=== PATIENT | male | born 1990 | race Caucasian/White ===

== ENCOUNTER 2017-06-10 15:25 | Emergency (ER) | payer SELFPAY ==
--- NOTE | 2017-06-10 15:43 | EDM.PDOC ---
ED HPI GENERAL MEDICAL PROBLEM - General Chief Complaint: ENT Problem Stated Complaint: SOMETHING STUCK IN THROAT Time Seen by Provider: 06/10/17 15:50 Source of Information: Reports: Patient History Limitations: Reports: No Limitations - History of Present Illness INITIAL COMMENTS - FREE TEXT/NARRATIVE: Michele is an otherwise healthy 27-year-old male who presents to the emergency department today with c/o foreign body in esophagus. Patient has had this happen in the past and was given a dose of SL NTG with relief. Patient has never been seen for this by a primary care provider as he lacks insurance. He is unable to swallow secretions, spitting in a bottle, denies any difficulty breathing or sob. Onset: Today Upper Chest Pain Score (Numeric/FACES): 2 - Related Data Allergies Allergy/AdvReac Type Severity Reaction Status Date / Time No Known Allergies Allergy Verified 07/08/15 18:23 Home Meds: Home Meds NK [No Known Home Meds] 10/08/13 [History] Past Medical History - Past Health History Medical/Surgical History: Denies Medical/Surgical History Social & Family History - Tobacco Use Smoking Status *Q: Light Tobacco Smoker Years of Tobacco use: 6 Packs/Tins Daily: 0.1 Used Tobacco, but Quit: No Second Hand Smoke Exposure: Yes - Alcohol Use Days Per Week of Alcohol Use: 3 Number of Drinks Per Day: 3 Total Drinks Per Week: 9 - Recreational Drug Use Recreational Drug Use: No ED ROS ENT - Review of Systems Review Of Systems: ROS reveals no pertinent complaints other than HPI. ED EXAM, ENT - Physical Exam Exam: See Below Exam Limited By: No Limitations General Appearance: Alert, WD/WN, No Apparent Distress Ears: Normal External Exam Mouth/Throat: Normal Inspection, Normal Lips, Other (No Uvula) Head: Atraumatic Neck: Normal Inspection, Supple, Non-Tender Respiratory/Chest: No Respiratory Distress, Lungs Clear, Normal Breath Sounds, No Accessory Muscle Use, Chest Non-Tender Cardiovascular: Regular Rate, Rhythm GI/Abdominal: Normal Bowel Sounds, Soft, Non-Tender Extremities: Normal Inspection, Normal Range of Motion Neurological: Alert, Oriented, CN II-XII Intact Psychiatric: Normal Affect, Normal Mood Skin: Warm, Dry, Intact Lymphatic: No Adenopathy Course - Vital Signs Last Recorded V/S: Last Vital Signs Temp 36.6 C 06/10/17 15:42 Pulse 72 06/10/17 15:42 Resp 18 06/10/17 15:42 BP 138/86 06/10/17 15:42 Pulse Ox 100 06/10/17 15:42 Michele is an otherwise healthy 27-year-old male who presents to the emergency department today with pork stuck in his esophagus. Please refer to history of present illness and focused exam. Patient had successfully received nitroglycerin in the past when seen for this before. Nitroglycerin and easy gas were ordered, prior to the administration, patient informed his nurse that he felt that the meat had passed and was able to drink a can of Coke without any difficulty. Patient at this time is stable to be discharged home, I strongly encouraged him to look into obtaining health care coverage to obtain a GI consult for esophageal dilatation to prevent this from happening in the future. Patient was encouraged to chew and eat slowly especially when it comes to protein and drink plenty of fluids to help the passage of food. Reasons to return to the emergency department were discussed, patient was agreeable to plan of care and was discharged in stable condition. - Orders/Labs/Meds Meds: Medications Discontinued Medications Generic Name Dose Route Start Last Admin Trade Name Freq PRN Reason Stop Dose Admin Nitroglycerin 0.4 mg 06/10/17 15:55 Nitrostat SL 06/10/17 15:56 ONETIME ONE Simethicone/Sodium Bicarb/Citric Ac 1 packet 06/10/17 15:53 E-Z-Gas Ii Effervescent Granules PO 06/10/17 15:54 ONETIME ONE Departure - Departure Time of Disposition: 17:00 Disposition: Home, Self-Care 01 Clinical Impression: Foreign body - Discharge Information Referrals: PCP,None [Primary Care Provider] - Forms: ED Department Discharge Additional Instructions: Michele Once he were able to establish healthcare coverage I would strongly recommend a gastrointestinal referral for dilation of your esophagus and the valve between your esophagus and stomach. Make sure you are chewing your food very well, especially protein such as meat to make it easier to pass. Drink plenty of fluids while you're eating to promote easier passage of food. Return to the emergency room with any complications.
[2017-06-10 15:45] VITALS: BP 138/86
[2017-06-10] MEDS ORDERED: Citric Acid/Simethicone/Sodium Bicarbonate Granules 4 GM Packet PO ONE (15:53)
[2017-06-10] MEDS ORDERED: Nitroglycerin 0.4 MG Tab.SL SL ONE (15:55)
== END 2017-06-10 17:04 | disposition home or self-care (01) ==
LOC: JP.ED 15:25
DX: T18.190A Other foreign object in esophagus causing compression of trachea, initial encounter (principal); F17.210 Nicotine dependence, cigarettes, uncomplicated
CPT/HCPCS: 99283

== ENCOUNTER 2023-02-10 12:18 | Emergency (ER) | payer OTHER ==
[2023-02-10 12:44] VITALS: BP 144/89; PULSE 66
== END 2023-02-10 13:18 | disposition home or self-care (01) ==
LOC: JP.ED 12:18
DX: H72.92 Unspecified perforation of tympanic membrane, left ear (principal)
CPT/HCPCS: 99282